=== PATIENT | male | born 1935 | race Caucasian/White ===

== ENCOUNTER 2020-06-02 07:30 | Inpatient (IN) ==
[~2020-06-02 07:30] MED LIST: Buffered Lidocaine 1% SYRIN 1 ml INTRADERM ONE; Lactated Ringers 1000 ml BAG 1,000 ML IV SCH
[2020-06-02] MEDS ORDERED: Buffered Lidocaine 1% SYRIN 1 ml INTRADERM ONE (07:56)
[2020-06-02] MEDS ORDERED: ceFAZolin 2 GM PREMIX 2 GM/50 ML BAG ONE (07:56)
[2020-06-02] MEDS ORDERED: Midazolam 2 mg/2 ml VIAL 1 mg/ml 2 ml VIAL (2 mg) ONE (08:01)
[2020-06-02] MEDS ORDERED: fentaNYL 100 mcg/2 ml 50 MCG/ML VIAL ONE (08:01)
[2020-06-02] MEDS ORDERED: Lidocaine 2% PF 5 ML VIAL ONE (08:02)
[2020-06-02] MEDS ORDERED: Ketamine HCL 50 mg/ml 10 ml VIAL (500 MG) ONE (08:02)
[2020-06-02] MEDS ORDERED: Lidocaine 1% MPF 5 ML VIAL ONE (08:02)
[2020-06-02 08:31] LABS: INR 1.16 (0.82-1.09)
[2020-06-02] MEDS ORDERED: ROPIVACAINE 5 MG/ML 30 ML BTL (0.5%) ONE ×2 (08:48→11:26)
[2020-06-02] MEDS ORDERED: Dexamethasone IV 4 MG/ML VIAL 1 ml VIAL ONE ×2 (09:03→09:06)
[2020-06-02] MEDS ORDERED: Bupivacaine 0.5% SDV PF 30ML VIAL ONE (09:04)
[2020-06-02] MEDS ORDERED: Propofol 10 MG/ML 20 ML BTL ONE ×2 (09:05→12:06)
[2020-06-02] MEDS ORDERED: Ondansetron 4 mg VIAL 2 MG/ML 2 ml VIAL ONE (09:06)
[2020-06-02] MEDS ORDERED: Phenylephrine IV 10 MG/ML 1 ml VIAL ONE (09:10)
[2020-06-02] MEDS ORDERED: Ondansetron 4 mg VIAL 2 MG/ML 2 ml VIAL IV PRN (10:48)
[2020-06-02] MEDS ORDERED: Magnesium Hydroxide LIQ 30 ML UDC PO PRN (10:48)
[2020-06-02] MEDS ORDERED: Morphine 2 MG/ML SYRINGE IV PRN (10:48)
[2020-06-02] MEDS ORDERED: Lactulose 30 ml UDC PO PRN (10:48)
[2020-06-02] MEDS ORDERED: diPHENhydraMINE IV 50 MG/ML 1 ml VIAL (BENADRYL) IV PRN ×2 (10:48→12:01)
[2020-06-02] MEDS ORDERED: diPHENhydraMINE 25 mg TAB PO PRN (10:48)
[2020-06-02] MEDS ORDERED: Ondansetron ODT 4 mg TAB 4 MG TAB PO PRN (10:48)
[2020-06-02] MEDS ORDERED: Naloxone 0.4 mg VIAL 0.4 mg/ml 1 ml VIAL IV PRN (12:01)
[2020-06-02] MEDS ORDERED: fentaNYL 100 mcg/2 ml 50 MCG/ML VIAL IV PRN (12:01)
[2020-06-02] MEDS: Lactated Ringers 1000 ml BAG 1,000 ML IV SCH (13:45)
[2020-06-02] MEDS ORDERED: Albuterol HFA INHALER 8 gm MDI INH PRN (14:02)
[2020-06-02] MEDS: ceFAZolin 1 GM ADVAN 1 GM in NS 0.9% 50 ML 50 ML IVPB SCH (17:17)
[2020-06-02] MEDS: Magnesium Hydroxide LIQ 30 ML UDC PO SCH (21:21)
[2020-06-03] MEDS: Lactated Ringers 1000 ml BAG 1,000 ML IV SCH (00:12)
[2020-06-03] MEDS: ceFAZolin 1 GM ADVAN 1 GM in NS 0.9% 50 ML 50 ML IVPB SCH ×2 (02:40→10:00)
[2020-06-03 06:35] LABS: Hematocrit 37 % (42-52); Hemoglobin 12.6 g/dL (14.0-18.0); Mean Platelet Volume 7.3 fL (7.4-10.4); Platelet Count 158 10^3/uL (150-450)
[2020-06-03 06:52] LABS: BUN/Creatinine Ratio 18.4 (8-20); Calcium 8.1 mg/dL (8.6-10.3); EGFR African American 101.7 (>60); Potassium 4.4 mmol/L (3.5-5.0)
[2020-06-03] MEDS: FLUTICASONE/UMECLIDIN/VILANTER 1 PUFF MDI INH SCH (07:11)
[2020-06-03] MEDS ORDERED: IRBESARTAN 75 MG PO SCH (09:00)
[2020-06-03] MEDS: Vitamin THERAPEUTIC TAB PO SCH (09:57)
[2020-06-03] MEDS: Magnesium Hydroxide LIQ 30 ML UDC PO SCH ×2 (09:57→21:23)
[2020-06-03] MEDS ORDERED: Iohexol 350 (CONTRAST) 500 ML MDV IV ONE (13:31)
[2020-06-04 04:45] LABS: ABS Basophils 0.1 10^3/ul (0-0.2); ABS Eosinophils 0.3 10^3/ul (0-0.6); ABS Lymphocytes 1.7 10^3/ul (1.0-4.8); ABS Monocytes 1.5 10^3/ul (0-0.8); ABS Neutrophils 6.2 10^3/ul (1.5-7.7); Eosinophil % 2.6 %; Hematocrit 34 % (42-52); Hemoglobin 11.6 g/dL (14.0-18.0); Lymphocyte % 17.5 %; Mean Corpuscular HGB Conc 34 g/dL (31-36); Mean Corpuscular Hemoglobin 30 pg (27-31); Mean Corpuscular Volume 88 fL (80-94); Mean Platelet Volume 7.1 fL (7.4-10.4); Platelet Count 152 10^3/uL (150-450); Red Blood Count 3.83 10^6 /uL (4.18-5.48); Red Cell Distribution Width 15 % (10-15); White Blood Count 9.7 10^3/uL (3.5-10.8)
[2020-06-04 05:01] LABS: BUN/Creatinine Ratio 18.3 (8-20); Calcium 8.3 mg/dL (8.6-10.3); EGFR African American 108.8 (>60); EGFR Non-African American 89.9 (>60); Magnesium 2.3 mg/dL (1.9-2.7); Potassium 4.4 mmol/L (3.5-5.0)
[2020-06-04] MEDS: Vitamin THERAPEUTIC TAB PO SCH (08:34)
[2020-06-04] MEDS: Magnesium Hydroxide LIQ 30 ML UDC PO SCH ×2 (08:34→20:51)
[2020-06-04] MEDS: FLUTICASONE/UMECLIDIN/VILANTER 1 PUFF MDI INH SCH ×2 (08:34→08:43)
[2020-06-05 06:00] LABS: Hematocrit 31 % (42-52); Hemoglobin 10.8 g/dL (14.0-18.0); Mean Platelet Volume 7.4 fL (7.4-10.4); Platelet Count 177 10^3/uL (150-450)
[2020-06-05] MEDS: Magnesium Hydroxide LIQ 30 ML UDC PO SCH (08:21)
[2020-06-05] MEDS: Vitamin THERAPEUTIC TAB PO SCH (08:26)
[2020-06-05] MEDS: FLUTICASONE/UMECLIDIN/VILANTER 1 PUFF MDI INH SCH (08:27)
[2020-06-05] MEDS ORDERED: Magnesium Sulfate IV 1GM/100ML 1 GM/100 ML BAG IV ONE (09:30)
[2020-06-05 12:00] VITALS: BP 117/53
== END 2020-06-05 16:45 | disposition home health service (06) | DRG 470 ==
LOC: INTOOBSV 07:30 → AA 07:30 → SSU 13:47
PROVIDERS: ADMIT Orthopaedic Surgery Adult Reconstructive Orthopaedic Surgery; ATTEND Orthopaedic Surgery Adult Reconstructive Orthopaedic Surgery

== ENCOUNTER 2020-12-01 16:42 | Inpatient (IN) ==
[~2020-12-01 16:42] MED LIST changes: -Buffered Lidocaine 1% SYRIN 1 ml INTRADERM ONE; -Lactated Ringers 1000 ml BAG 1,000 ML IV SCH; +Piperacillin/Tazobac ADVAN 3.375 GM in NS 0.9% 100 ml BAG 100 ML IV ONE
[2020-12-01 17:21] LABS: ABS Eosinophils 0.1 10^3/ul (0-0.6); ABS Monocytes 0.8 10^3/ul (0-0.8); ABS Neutrophils 9.9 10^3/ul (1.5-7.7); Eosinophil % 0.5 %; Hematocrit 49 % (42-52); Hemoglobin 16.7 g/dL (14.0-18.0); Lymphocyte % 8.4 %; Mean Corpuscular HGB Conc 34 g/dL (31-36); Mean Corpuscular Hemoglobin 29 pg (27-31); Mean Corpuscular Volume 85 fL (80-94); Mean Platelet Volume 7.5 fL (7.4-10.4); Platelet Count 160 10^3/uL (150-450); Red Blood Count 5.71 10^6 /uL (4.18-5.48); Red Cell Distribution Width 16 % (10-15); White Blood Count 11.8 10^3/uL (3.5-10.8)
[2020-12-01 17:55] LABS: Albumin 4.4 g/dL (3.2-5.2); Albumin/Globulin Ratio 1.5 (1-3); C Reactive Protein 47.94 mg/L (<8.01); Calcium 9.2 mg/dL (8.6-10.3); EGFR African American 78.2 (>60); EGFR Non-African American 64.6 (>60); Globulin 2.9 g/dL (2-4); Potassium 4.5 mmol/L (3.5-5.0); Total Bilirubin 1.2 mg/dL (0.2-1.0); Total Protein 7.3 g/dL (6.4-8.9)
[2020-12-01] MEDS ORDERED: Iohexol 300 (CONTRAST) 10 ML SDV IV ONE (18:30)
[2020-12-01 20:55] LABS: Urine Appearance Clear; Urine Bilirubin Negative (Negative); Urine Blood Negative (Negative); Urine Color Yellow; Urine Glucose Negative (Negative); Urine Ketones Negative (Negative); Urine Nitrite Negative (Negative); Urine Protein Negative (Negative); Urine Specific Gravity 1.026 (1.002-1.030); Urine Urobilinogen Negative (Negative)
[2020-12-01 21:08] LABS: Urine Bacteria 1+ (Absent); Urine Red Blood Cell Absent (Absent); Urine Squamous Epithelial Cell Present (Absent); Urine White Blood Cell Trace(0-5/hpf) (Absent)
[2020-12-01] MEDS ORDERED: Lactated Ringers 1000 ml BAG 1,000 ML IV ONE (21:33)
[2020-12-01] MEDS ORDERED: Piperacillin/Tazobac ADVAN 3.375 GM in NS 0.9% 100 ml BAG 100 ML IVPB ONE (21:34)
[2020-12-01] MEDS ORDERED: Ondansetron 4 mg VIAL 2 MG/ML 2 ml VIAL IV PRN (22:03)
[2020-12-01 22:20] LABS: Rapid COVID-19 Molecular Undetected (Undetected)
[2020-12-01] MEDS ORDERED: Lactated Ringers 1000 ml BAG 1,000 ML IV SCH (23:00)
[2020-12-01] MEDS ORDERED: Zosyn per Pharmacy NOTE FOLLOW UP SCH (23:00)
[2020-12-02] MEDS: Enoxaparin 40 MG/0.4 ML SYR SUBCUT SCH ×2 (04:26→23:10)
[2020-12-02] MEDS: ZOSYN 3.375 GM Q8H per EXTENDED INFUSION IV SCH ×3 (04:26→20:37)
[2020-12-02 06:35] LABS: INR 1.39 (0.86-1.15)
[2020-12-02 06:43] LABS: ABS Eosinophils 0.1 10^3/ul (0-0.6); ABS Lymphocytes 1.7 10^3/ul (1.0-4.8); ABS Monocytes 1.4 10^3/ul (0-0.8); ABS Neutrophils 9.9 10^3/ul (1.5-7.7); Eosinophil % 0.4 %; Hematocrit 45 % (42-52); Hemoglobin 15.1 g/dL (14.0-18.0); Lymphocyte % 12.7 %; Mean Corpuscular HGB Conc 34 g/dL (31-36); Mean Corpuscular Hemoglobin 29 pg (27-31); Mean Corpuscular Volume 86 fL (80-94); Mean Platelet Volume 7.5 fL (7.4-10.4); Platelet Count 141 10^3/uL (150-450); Red Blood Count 5.18 10^6 /uL (4.18-5.48); Red Cell Distribution Width 16 % (10-15); White Blood Count 13.1 10^3/uL (3.5-10.8)
[2020-12-02 07:01] LABS: Potassium 3.9 mmol/L (3.5-5.0)
[2020-12-02 07:02] LABS: Albumin 3.6 g/dL (3.2-5.2); Albumin/Globulin Ratio 1.4 (1-3); C Reactive Protein 162.9 mg/L (<8.01); Calcium 8.6 mg/dL (8.6-10.3); Direct Bilirubin 0.3 mg/dL (0.03-0.18); EGFR African American 91.6 (>60); EGFR Non-African American 75.7 (>60); Globulin 2.5 g/dL (2-4); Indirect Bilirubin 2.4 mg/dL (0.3-1.0); Magnesium 1.9 mg/dL (1.9-2.7); Total Bilirubin 2.7 mg/dL (0.2-1.0); Total Protein 6.1 g/dL (6.4-8.9)
[2020-12-02] MEDS: CMC:FLUTICAS/UMECLI/VILANT 100-62.5-25 MDI (NF) INH SCH (12:18)
[2020-12-02] MEDS: Aspirin EC 81 mg TAB.EC (enteric coated) PO SCH (23:10)
[2020-12-03] MEDS: ZOSYN 3.375 GM Q8H per EXTENDED INFUSION IV SCH ×3 (04:19→19:51)
[2020-12-03 04:37] LABS: ABS Basophils 0.1 10^3/ul (0-0.2); ABS Eosinophils 0.1 10^3/ul (0-0.6); ABS Lymphocytes 1.7 10^3/ul (1.0-4.8); ABS Monocytes 1.5 10^3/ul (0-0.8); ABS Neutrophils 9.9 10^3/ul (1.5-7.7); Hematocrit 44 % (42-52); Mean Corpuscular HGB Conc 34 g/dL (31-36); Mean Corpuscular Hemoglobin 29 pg (27-31); Mean Corpuscular Volume 86 fL (80-94); Mean Platelet Volume 7.6 fL (7.4-10.4); Platelet Count 135 10^3/uL (150-450); Red Cell Distribution Width 16 % (10-15); White Blood Count 13.4 10^3/uL (3.5-10.8)
[2020-12-03 04:52] LABS: Calcium 8.4 mg/dL (8.6-10.3); EGFR African American 90.5 (>60); EGFR Non-African American 74.8 (>60); Magnesium 1.9 mg/dL (1.9-2.7)
[2020-12-03] MEDS: CMC:FLUTICAS/UMECLI/VILANT 100-62.5-25 MDI (NF) INH SCH (07:20)
[2020-12-03 09:13] LABS: Albumin 3.3 g/dL (3.2-5.2); Albumin/Globulin Ratio 1.2 (1-3); C Reactive Protein 301.95 mg/L (<8.01); Direct Bilirubin 0.3 mg/dL (0.03-0.18); Globulin 2.8 g/dL (2-4); Indirect Bilirubin 2.3 mg/dL (0.3-1.0); Total Bilirubin 2.6 mg/dL (0.2-1.0); Total Protein 6.1 g/dL (6.4-8.9)
[2020-12-03] MEDS ORDERED: Polyethylene Glycol 3350 17 GM PACKET PO PRN (10:08)
[2020-12-03] MEDS ORDERED: Senna TAB 8.6 mg TAB PO PRN (10:08)
[2020-12-03] MEDS ORDERED: Magnesium Hydroxide LIQ 30 ML UDC PO PRN (10:08)
[2020-12-03] MEDS: NS 0.9% 1000 ml BAG 1,000 ML IV SCH (12:05)
[2020-12-03] MEDS: Enoxaparin 40 MG/0.4 ML SYR SUBCUT SCH (21:07)
[2020-12-03] MEDS: Aspirin EC 81 mg TAB.EC (enteric coated) PO SCH (21:08)
[2020-12-04] MEDS: ZOSYN 3.375 GM Q8H per EXTENDED INFUSION IV SCH ×3 (03:30→20:20)
[2020-12-04] MEDS: NS 0.9% 1000 ml BAG 1,000 ML IV SCH (03:30)
[2020-12-04 07:01] LABS: ABS Eosinophils 0.1 10^3/ul (0-0.6); ABS Lymphocytes 1.3 10^3/ul (1.0-4.8); ABS Neutrophils 8.2 10^3/ul (1.5-7.7); Eosinophil % 1.3 %; Hematocrit 41 % (42-52); Hemoglobin 13.9 g/dL (14.0-18.0); Lymphocyte % 11.8 %; Mean Corpuscular HGB Conc 34 g/dL (31-36); Mean Corpuscular Hemoglobin 30 pg (27-31); Mean Corpuscular Volume 86 fL (80-94); Platelet Count 131 10^3/uL (150-450); Red Blood Count 4.72 10^6 /uL (4.18-5.48); Red Cell Distribution Width 16 % (10-15); White Blood Count 10.6 10^3/uL (3.5-10.8)
[2020-12-04 07:15] LABS: C Reactive Protein 277.85 mg/L (<8.01); Calcium 8.2 mg/dL (8.6-10.3); EGFR African American 111.7 (>60); EGFR Non-African American 92.3 (>60); Potassium 3.8 mmol/L (3.5-5.0)
[2020-12-04] MEDS: CMC:FLUTICAS/UMECLI/VILANT 100-62.5-25 MDI (NF) INH SCH (07:23)
[2020-12-04] MEDS ORDERED: Albuterol HFA INHALER 8 gm MDI INH PRN (20:14)
[2020-12-04] MEDS: Aspirin EC 81 mg TAB.EC (enteric coated) PO SCH (20:21)
[2020-12-04] MEDS: Enoxaparin 40 MG/0.4 ML SYR SUBCUT SCH (20:23)
[2020-12-05] MEDS: ZOSYN 3.375 GM Q8H per EXTENDED INFUSION IV SCH ×2 (04:37→12:25)
[2020-12-05] MEDS: CMC:FLUTICAS/UMECLI/VILANT 100-62.5-25 MDI (NF) INH SCH (07:44)
[2020-12-05 09:49] VITALS: BP 132/62
== END 2020-12-05 12:25 | disposition home or self-care (01) | DRG 392 ==
LOC: ED 16:42 → EDHOLD 16:42 → SUATTDRO 22:03 → MED 12-02 10:20 → MEDTELE 12-04 09:34
PROVIDERS: ADMIT Internal Medicine; ATTEND Internal Medicine

== ENCOUNTER 2023-12-17 07:30 | Observation (INO) ==
[~2023-12-17 07:30] MED LIST changes: +Metoclopramide 5 MG/ML VIAL (10 mg) IV PRN; +NS 0.45% 1000 ml BAG 1,000 ML IV SCH; +Naloxone 0.4 mg VIAL 0.4 mg/ml 1 ml VIAL IV PRN; +Ondansetron 4 mg VIAL 2 MG/ML 2 ml VIAL IV PRN; -Piperacillin/Tazobac ADVAN 3.375 GM in NS 0.9% 100 ml BAG 100 ML IV ONE; +fentaNYL 100 mcg/2 ml 50 MCG/ML VIAL IV PRN
[2023-12-17] MEDS: Buffered Lidocaine 1% SYRIN 1 ml INTRADERM ONE (11:04)
[2023-12-17] MEDS: Scopolamine 1 mg/72hr PATCH TRANSDERM ONE (11:04)
[2023-12-17] MEDS: Acetaminophen IV 1 GM/100ML 1,000 MG/100 ML BAG IV ONE (11:04)
[2023-12-17] MEDS ORDERED: ceFAZolin 2 GM PREMIX 2 GM/50 ML BAG ONE (11:10)
[2023-12-17] MEDS ORDERED: Tranexamic Acid 1 GM/100ML BAG 2,000 MG/200 ML BAG IV ONE (11:10)
[2023-12-17 11:32] LABS: Rapid COVID-19 Molecular Undetected (Undetected)
[2023-12-17] MEDS: Lactated Ringers 1000 ml BAG 1,000 ML IV SCH ×2 (11:38→18:30)
[2023-12-17] MEDS ORDERED: Phenylephrine IV 10 MG/ML 1 ml VIAL ONE (12:23)
[2023-12-17] MEDS ORDERED: Propofol 10 MG/ML 20 ML BTL ONE ×2 (12:23→12:25)
[2023-12-17] MEDS ORDERED: ROPIVACAINE 5 MG/ML 30 ML BTL (0.5%) ONE (12:51)
[2023-12-17] MEDS ORDERED: fentaNYL 100 mcg/2 ml 50 MCG/ML VIAL ONE (12:52)
[2023-12-17] MEDS ORDERED: Midazolam 2 mg/2 ml VIAL 1 mg/ml 2 ml VIAL (2 mg) ONE (12:52)
[2023-12-17] MEDS ORDERED: Morphine 2 MG/ML SYRINGE IV PRN (16:44)
[2023-12-17] MEDS ORDERED: Lactulose 30 ml UDC PO PRN (16:44)
[2023-12-17] MEDS ORDERED: Ondansetron ODT 4 mg TAB 4 MG TAB PO PRN (16:44)
[2023-12-17] MEDS ORDERED: Calcium Carb (TUMS) 500 mg CHEW TAB PO PRN (16:44)
[2023-12-17] MEDS ORDERED: Magnesium Hydroxide LIQ 30 ML UDC PO PRN (16:44)
[2023-12-17] MEDS: Aspirin EC 81 mg TAB.EC (enteric coated) PO SCH (21:58)
[2023-12-17] MEDS: Magnesium Hydroxide LIQ 30 ML UDC PO SCH (21:58)
[2023-12-17] MEDS: Ondansetron 4 mg VIAL 2 MG/ML 2 ml VIAL IV PRN (22:32)
[2023-12-18] MEDS: ceFAZolin 2 GM PREMIX 2 GM/50 ML BAG IV SCH ×2 (00:20→08:33)
[2023-12-18 06:25] LABS: Hematocrit 39.6 % (38-53); Hemoglobin 13.4 g/dL (13.2-16.3); Mean Platelet Volume 7.6 fL (7.5-11.2); Platelet Count 127 10^3/uL (150-450)
[2023-12-18 07:02] LABS: Creatinine, Serum 0.89 mg/dL (0.67-1.17); Potassium 4.3 mmol/L (3.5-5.0); eGFR CKD-EPI 83.5 (>60)
[2023-12-18] MEDS: Vitamin THERAPEUTIC TAB PO SCH (08:34)
[2023-12-18] MEDS: FLUTICAS/UMECLI/VILANT 100-62.5-25 MDI (NF) INH SCH (08:45)
[2023-12-18 14:25] VITALS: BP 111/63
[2023-12-19] MEDS ORDERED: Aspirin EC 81 mg TAB.EC (enteric coated) PO SCH (21:00)
== END 2023-12-18 17:40 | disposition home or self-care (01) ==
LOC: AA 16:41 → INTOOBSV 16:41 → SSU 16:44
PROVIDERS: ADMIT Orthopaedic Surgery Adult Reconstructive Orthopaedic Surgery; ATTEND Orthopaedic Surgery Adult Reconstructive Orthopaedic Surgery

== ENCOUNTER 2023-12-28 19:37 | Inpatient (IN) ==
[2023-12-28 21:15] LABS: Hematocrit 19.1 % (38-53); Hemoglobin 6.5 g/dL (13.2-16.3); Mean Corpuscular Hemoglobin 30.4 pg (27-33); Mean Corpuscular Hgb Conc 34.2 g/dL (31-36); Mean Corpuscular Volume 88.9 fL (80-97); Mean Platelet Volume 6.6 fL (7.5-11.2); Platelet Count 411 10^3/uL (150-450); Red Blood Count 2.15 10^6/uL (4.06-5.63); Red Cell Distribution Width 14.1 % (12-17); White Blood Count 13.5 10^3/uL (3.6-10.2)
[2023-12-28 21:25] LABS: INR 1.58 (0.85-1.14)
[2023-12-28] MEDS: NS 0.9% 250 ml 250 ML IV ONE (21:31)
[2023-12-28 21:54] LABS: ABS Basophils 0.1 10^3/uL (0.0-0.1); ABS Eosinophils 0.1 10^3/uL (0.0-0.5); ABS Lymphocytes 1.6 10^3/uL (1.0-4.8); ABS Monocytes 1.2 10^3/uL (0.0-1.1); ABS Neutrophils 10.6 10^3/uL (1.5-7.6); ABS Nucleated RBC 0.01 10^3/ul; Eosinophil % 0.6 %; Nucleated Red Blood Cells % 0.1 %/100WBC (0.0-0.8)
[2023-12-28 21:56] LABS: Albumin 2.6 g/dL (3.2-5.2); Albumin/Globulin Ratio 1.6 (1-3); Calcium 7.6 mg/dL (8.6-10.3); Creatinine, Serum 0.71 mg/dL (0.67-1.17); Globulin 1.6 g/dL (2-4); Magnesium 1.7 mg/dL (1.9-2.7); Potassium 4.4 mmol/L (3.5-5.0); Total Bilirubin 0.9 mg/dL (0.2-1.0); Total Protein 4.2 g/dL (6.4-8.9); eGFR CKD-EPI 89.4 (>60)
[2023-12-28 22:11] LABS: TSH Ultra Thyroid Stim Horm 1.46 mcIU/mL (0.34-5.60)
[2023-12-28 22:28] LABS: High Sensitivity Troponin 1 Hr 91 pg/mL (<20)
[2023-12-29] MEDS: Iohexol 350 (CONTRAST) 500 ML MDV IV ONE ×2 (01:47→14:49)
[2023-12-29] MEDS: Calcium Carb (TUMS) 500 mg CHEW TAB PO ONE (04:35)
[2023-12-29] MEDS: Pantoprazole VIAL 40 MG VIAL IV ONE (04:36)
[2023-12-29] MEDS: Magnesium Sulfate 2 gm BAG 2 GM/50 ML BAG IVPB ONE (05:15)
[2023-12-29 05:23] LABS: Urine Appearance Clear; Urine Bilirubin Negative (Negative); Urine Blood Negative (Negative); Urine Color Light-Yellow; Urine Glucose Negative (Negative); Urine Ketones Negative (Negative); Urine Nitrite Negative (Negative); Urine Protein Negative (Negative); Urine Specific Gravity 1.023 (1.002-1.030); Urine Urobilinogen Negative (Negative)
[2023-12-29] MEDS ORDERED: Ondansetron 4 mg VIAL 2 MG/ML 2 ml VIAL ONE (05:33)
[2023-12-29] MEDS: Ondansetron 4 mg VIAL 2 MG/ML 2 ml VIAL IV PRN (05:39)
[2023-12-29 06:30] LABS: Hematocrit 22.1 % (38-53); Hemoglobin 7.4 g/dL (13.2-16.3); Mean Corpuscular Hemoglobin 29.8 pg (27-33); Mean Corpuscular Hgb Conc 33.5 g/dL (31-36); Mean Platelet Volume 6.3 fL (7.5-11.2); Platelet Count 422 10^3/uL (150-450); Red Blood Count 2.48 10^6/uL (4.06-5.63); Red Cell Distribution Width 15.2 % (12-17); White Blood Count 13.4 10^3/uL (3.6-10.2)
[2023-12-29 07:47] LABS: Calcium 7.4 mg/dL (8.6-10.3); Creatinine, Serum 0.67 mg/dL (0.67-1.17); Magnesium 2.4 mg/dL (1.9-2.7); Potassium 4.3 mmol/L (3.5-5.0); eGFR CKD-EPI 90.9 (>60)
[2023-12-29 08:19] LABS: High Sensitivity Troponin 1 Hr 112 pg/mL (<20)
[2023-12-29 08:23] LABS: ABS Basophils 0.1 10^3/uL (0.0-0.1); ABS Lymphocytes 1.1 10^3/uL (1.0-4.8); ABS Monocytes 1.2 10^3/uL (0.0-1.1); ABS Nucleated RBC 0.06 10^3/ul; Anisocytosis 1+; Eosinophil % 0.1 %; Lymphocyte % 8.1 %; Nucleated Red Blood Cells % 0.5 %/100WBC (0.0-0.8); Polychromasia 1+
[2023-12-29] MEDS: cefTRIAXone 1 gm/50 mL D5W 1 GM/50 ML BAG IV SCH (11:13)
[2023-12-29] MEDS: FLUTICAS/UMECLI/VILANT 100-62.5-25 MDI (NF) INH SCH (11:14)
[2023-12-29] MEDS ORDERED: fentaNYL 100 mcg/2 ml 50 MCG/ML VIAL IV PRN (11:21)
[2023-12-29] MEDS ORDERED: Ondansetron 4 mg VIAL 2 MG/ML 2 ml VIAL IV PRN (11:21)
[2023-12-29] MEDS ORDERED: Naloxone 0.4 mg VIAL 0.4 mg/ml 1 ml VIAL IV PRN (11:21)
[2023-12-29] MEDS: Remdesivir 100 mg Vial 200 MG in NS 0.9% 250 ml 210 ML IV ONE (11:34)
[2023-12-29] MEDS ORDERED: Midazolam 2 mg/2 ml VIAL 1 mg/ml 2 ml VIAL (2 mg) ONE (11:52)
[2023-12-29] MEDS ORDERED: fentaNYL 100 mcg/2 ml 50 MCG/ML VIAL ONE (11:52)
[2023-12-29] MEDS ORDERED: Propofol 10 MG/ML 20 ML BTL ONE (11:52)
[2023-12-29] MEDS ORDERED: Sodium Chloride 0.9% 10 ML ONE (11:56)
[2023-12-29] MEDS ORDERED: NS 0.45% 1000 ml BAG 1,000 ML IV SCH (12:00)
[2023-12-29] MEDS: Ondansetron 4 mg VIAL 2 MG/ML 2 ml VIAL IV ONE (14:49)
[2023-12-29] MEDS: Buffered Lidocaine 1% SYRIN 1 ml INTRADERM ONE (14:49)
[2023-12-29] MEDS: Acetaminophen IV 1 GM/100ML 1,000 MG/100 ML BAG IV ONE (14:49)
[2023-12-29] MEDS: Benzocaine/Butamben/Tetracain (CETACAINE - SINGLE USE) 5 gm TOPICAL ONE (14:50)
[2023-12-29] MEDS: Lactated Ringers 1000 ml BAG 1,000 ML IV SCH (14:57)
[2023-12-29] MEDS: Pantoprazole VIAL 40 MG VIAL IV SCH (14:57)
[2023-12-29 16:56] LABS: Hematocrit 25.7 % (38-53); Hemoglobin 8.5 g/dL (13.2-16.3)
[2023-12-29] MEDS: Furosemide 20 mg/2 ml IV VIAL IV SLOW PU ONE (17:19)
[2023-12-30 06:08] LABS: Hematocrit 24.5 % (38-53); Mean Corpuscular Hemoglobin 29.7 pg (27-33); Mean Corpuscular Hgb Conc 32.7 g/dL (31-36); Mean Corpuscular Volume 90.9 fL (80-97); Mean Platelet Volume 6.1 fL (7.5-11.2); Platelet Count 429 10^3/uL (150-450); Red Cell Distribution Width 15.5 % (12-17); White Blood Count 14.4 10^3/uL (3.6-10.2)
[2023-12-30 06:09] LABS: ABS Basophils 0.1 10^3/uL (0.0-0.1); ABS Eosinophils 0.1 10^3/uL (0.0-0.5); ABS Lymphocytes 1.5 10^3/uL (1.0-4.8); ABS Monocytes 1.8 10^3/uL (0.0-1.1); ABS Neutrophils 10.9 10^3/uL (1.5-7.6); ABS Nucleated RBC 0.04 10^3/ul; Eosinophil % 0.6 %; Lymphocyte % 10.4 %; Nucleated Red Blood Cells % 0.3 %/100WBC (0.0-0.8)
[2023-12-30 06:43] LABS: Albumin 2.8 g/dL (3.2-5.2); Albumin/Globulin Ratio 1.9 (1-3); Calcium 7.6 mg/dL (8.6-10.3); Creatinine, Serum 0.81 mg/dL (0.67-1.17); Globulin 1.5 g/dL (2-4); Potassium 4.4 mmol/L (3.5-5.0); Total Bilirubin 1.1 mg/dL (0.2-1.0); Total Protein 4.3 g/dL (6.4-8.9); eGFR CKD-EPI 85.9 (>60)
[2023-12-30 07:13] LABS: INR 1.35 (0.85-1.14)
[2023-12-30] MEDS: Remdesivir 100 mg Vial 100 MG in NS 0.9% 250 ml 230 ML IV SCH (11:30)
[2023-12-30] MEDS: Ferric Gluconate IV 250 MG in NS 0.9% 250 ml 200 ML IVPB SCH (13:02)
[2023-12-30] MEDS: NS 0.9% 500 ml BAG 500 ML IV ONE (14:17)
[2023-12-30 15:08] LABS: Hematocrit 22.5 % (38-53); Hemoglobin 7.4 g/dL (13.2-16.3)
[2023-12-31 09:49] LABS: Hematocrit 25.7 % (38-53); Hemoglobin 8.8 g/dL (13.2-16.3); Mean Corpuscular Hemoglobin 30.7 pg (27-33); Mean Corpuscular Hgb Conc 34.1 g/dL (31-36); Mean Corpuscular Volume 89.9 fL (80-97); Mean Platelet Volume 6.2 fL (7.5-11.2); Platelet Count 383 10^3/uL (150-450); Red Blood Count 2.86 10^6/uL (4.06-5.63); Red Cell Distribution Width 15.3 % (12-17); White Blood Count 9.3 10^3/uL (3.6-10.2)
[2023-12-31 10:01] LABS: INR 1.33 (0.85-1.14)
[2023-12-31 10:11] LABS: Albumin 2.6 g/dL (3.2-5.2); Albumin/Globulin Ratio 1.6 (1-3); Calcium 7.6 mg/dL (8.6-10.3); Creatinine, Serum 0.75 mg/dL (0.67-1.17); Globulin 1.6 g/dL (2-4); Potassium 4.1 mmol/L (3.5-5.0); Total Bilirubin 0.9 mg/dL (0.2-1.0); Total Protein 4.2 g/dL (6.4-8.9); eGFR CKD-EPI 87.9 (>60)
[2024-01-01 07:09] LABS: Hematocrit 26.7 % (38-53); Hemoglobin 9.2 g/dL (13.2-16.3); Mean Corpuscular Hemoglobin 31.3 pg (27-33); Mean Corpuscular Hgb Conc 34.4 g/dL (31-36); Mean Corpuscular Volume 90.9 fL (80-97); Mean Platelet Volume 6.7 fL (7.5-11.2); Platelet Count 395 10^3/uL (150-450); Red Blood Count 2.94 10^6/uL (4.06-5.63); Red Cell Distribution Width 15.7 % (12-17); White Blood Count 8.8 10^3/uL (3.6-10.2)
[2024-01-01 07:19] LABS: INR 1.29 (0.85-1.14)
[2024-01-01 07:23] LABS: Albumin 2.7 g/dL (3.2-5.2); Albumin/Globulin Ratio 1.8 (1-3); Calcium 7.6 mg/dL (8.6-10.3); Creatinine, Serum 0.75 mg/dL (0.67-1.17); Globulin 1.5 g/dL (2-4); Potassium 4.1 mmol/L (3.5-5.0); Total Bilirubin 0.8 mg/dL (0.2-1.0); Total Protein 4.2 g/dL (6.4-8.9); eGFR CKD-EPI 87.9 (>60)
[2024-01-01 10:22] VITALS: BP 99/60
== END 2024-01-01 15:15 | disposition home or self-care (01) | DRG 368 ==
LOC: ED 19:37 → EDHOLD 19:37 → OBSVTOIN 12-29 02:15 → SUATTDRO 12-29 02:15 → AA 12-29 12:49 → SSU 12-29 14:41
PROVIDERS: ADMIT Internal Medicine; ATTEND Internal Medicine